=== PATIENT | male | born 1985 | race Caucasian/White ===

== ENCOUNTER 2016-07-01 17:32 | Emergency (ER) | payer BC ==
[2016-07-01 17:39] VITALS: RESP 18; TEMP 98.4
[2016-07-01] MEDS ORDERED: SODIUM CHLORIDE 0.9% 500 ML IV STA (18:14)
[2016-07-01] MEDS ORDERED: HYDROmorphone 1 MG/ML 1 ML SYRINGE IVP STA (18:14)
[2016-07-01] MEDS ORDERED: LORazepam 2 MG/ML SYRINGE IV STA (18:15)
--- NOTE | 2016-07-01 18:19 | ED ---
Abdominal Pain HPI - General Chief Complaint: Abdominal Pain Stated Complaint: stomach pain Time Seen by Provider: 07/01/16 18:07 Source: patient Mode of arrival: ambulatory Limitations: no limitations - History of Present Illness Initial Comments: This patient is a 31-year-old man who presents with severe periumbilical pain that started this afternoon probably about 3 hours ago while he was driving. The patient states that he does have history of umbilical hernia. He states that the pain currently has a aching and cramping character. He has not noted anything that relieves the pain area is worse if he touches the area of the hernia. Patient has not had fever or chills, vomiting, change in bowel movements, last which was last night and normal. No change in urination. MD Complaint: abdominal pain Onset/Timin -: hour(s) Location: periumbilical Radiation: none Severity: severe Quality: cramping, aching Consistency: constant Improves With: nothing Worsens With: nothing Associated Symptoms: denies other symptoms - Related Data Home Medications Medication Instructions Recorded Confirmed No Known Home Medications [No 07/01/16 07/01/16 Known Home Medications] Allergies Allergy/AdvReac Type Severity Reaction Status Date / Time amoxicillin [Amoxicillin] Allergy Unknown Verified 07/01/16 17:48 Review of Systems ROS Statement: Those systems with pertinent positive or pertinent negative responses have been documented in the HPI. ROS Other: All systems not noted in ROS Statement are negative. Constitutional: Denies: fever, chills Respiratory: Denies: cough, dyspnea Cardiovascular: Denies: chest pain, palpitations, syncope Gastrointestinal: Reports: abdominal pain. Denies: nausea, vomiting, diarrhea, constipation, melena, hematochezia Genitourinary: Denies: dysuria, hematuria, testicular pain Musculoskeletal: Denies: back pain Skin: Denies: rash Neurological: Denies: headache, weakness, numbness Hematological/Lymphatic: Denies: easy bleeding Past Medical History Past Medical History: No Reported History History of Any Multi-Drug Resistant Organisms: None Reported Past Surgical History: No Surgical Hx Reported Additional Past Surgical History / Comment(s): abdomal surg skin removal Past Psychological History: No Psychological Hx Reported Smoking Status: Never smoker Past Alcohol Use History: Occasional Past Drug Use History: None Reported General Exam Limitations: no limitations General appearance: alert, in no apparent distress Head exam: Present: atraumatic, normocephalic Eye exam: Present: normal appearance. Absent: scleral icterus, conjunctival injection Neck exam: Present: normal inspection Respiratory exam: Present: normal lung sounds bilaterally. Absent: respiratory distress, wheezes, rales, rhonchi, stridor Cardiovascular Exam: Present: regular rate, normal rhythm, normal heart sounds. Absent: systolic murmur, diastolic murmur, rubs, gallop GI/Abdominal exam: Present: soft, tenderness, guarding, normal bowel sounds, hernia, other (Patient has an approximately 6 cm bulge located at site of his umbilical hernia, which is tender. The hernia is incarcerated.). Absent: distended, rebound, mass, pulsatile mass Extremities exam: Present: normal inspection, normal capillary refill. Absent: pedal edema, calf tenderness Back exam: Present: normal inspection. Absent: CVA tenderness (R), CVA tenderness (L) Neurological exam: Present: alert Skin exam: Present: warm, dry, intact, normal color. Absent: rash, cyanosis, diaphoretic, erythema, petechiae, pallor, mottled Course Vital Signs 07/01/16 07/01/16 07/01/16 17:36 19:04 19:11 Temperature 98.4 F Pulse Rate 66 91 98 Respiratory 18 18 18 Rate Blood Pressure 138/71 130/67 132/63 O2 Sat by Pulse 97 100 100 Oximetry 07/01/16 07/01/16 19:16 19:21 Temperature Pulse Rate 88 85 Respiratory 18 18 Rate Blood Pressure 135/63 129/57 O2 Sat by Pulse 99 98 Oximetry Procedures - Procedural Sedation Indications: other (Umbilical hernia reduction) ASA Class: I Mallampati Airway Score: 2 Preparation: court monitor applied, pulse oximeter, supplemental O2 applied, suction/airway equipment at bedside, IV secured Midazolam: IV Midazolam Dose: 6 Complications: none Patient Tolerated Procedure: well Medical Decision Making - Medical Decision Making This patient is a 31-year-old man who presents with an incarcerated umbilical hernia. His symptoms have been going on for approximately 3 hours now. I did attempt a reduction at bedside, and the patient is guarding. I discussed the case with Dr. Nava who is the surgeon on-call, and recommends this be attempted with conscious sedation. He states that he will come to see the patient if my attempt is not successful. I discussed the risks and benefits as well as indications with the patient who did sign the consent form. Patient given the sedation and then I was able to reduce the hernia at bedside. Patient observed to ensure that symptoms have resolved. Discussed return parameters as well as the follow-up with Dr. Nava to discuss repair options. - Lab Data Result diagrams: 07/01/16 18:22 07/01/16 18:22 Lab Results 07/01/16 07/01/16 07/01/16 Range/Units 18:22 18:22 18:22 WBC 11.1 H (3.8-10.6) k/uL RBC 5.16 (4.30-5.90) m/uL Hgb 14.9 (13.0-17.5) gm/dL Hct 45.2 (39.0-53.0) % MCV 87.7 (80.0-100.0) fL MCH 29.0 (25.0-35.0) pg MCHC 33.0 (31.0-37.0) g/dL RDW 12.4 (11.5-15.5) % Plt Count 245 (150-450) k/uL Neutrophils % 85 % Lymphocytes % 9 % Monocytes % 4 % Eosinophils % 1 % Basophils % 1 % Neutrophils # 9.5 H (1.3-7.7) k/uL Lymphocytes # 1.0 (1.0-4.8) k/uL Monocytes # 0.4 (0-1.0) k/uL Eosinophils # 0.1 (0-0.7) k/uL Basophils # 0.1 (0-0.2) k/uL Sodium 141 (137-145) mmol/L Potassium 4.4 (3.5-5.1) mmol/L Chloride 104 (98-107) mmol/L Carbon Dioxide 26 (22-30) mmol/L Anion Gap 11 mmol/L BUN 18 (9-20) mg/dL Creatinine 0.74 (0.66-1.25) mg/dL Est GFR (MDRD) Af Amer >60 (>60 ml/min/1.73 sqM) Est GFR (MDRD) Non-Af >60 (>60 ml/min/1.73 sqM) Glucose 90 (74-99) mg/dL Plasma Lactic Acid Ethan 0.9 (0.7-2.0) mmol/L Calcium 9.4 (8.4-10.2) mg/dL Total Bilirubin 1.1 (0.2-1.3) mg/dL AST 46 (17-59) U/L ALT 48 (21-72) U/L Alkaline Phosphatase 59 (38-126) U/L Total Protein 7.8 (6.3-8.2) g/dL Albumin 4.5 (3.5-5.0) g/dL Amylase 41 (30-110) U/L Lipase 26 (23-300) U/L Disposition Clinical Impression: Umbilical hernia, incarcerated Disposition: HOME SELF-CARE Condition: Good Instructions: Umbilical Hernia (ED) Referrals: Erlin Olivier MD [Primary Care Provider] - 1-2 days Tye Nava MD [STAFF PHYSICIAN] - 1-2 days
[2016-07-01 18:36] LABS: Basophils # (A) 0.1 k/uL (0-0.2); Basophils % (A) 1 %; CH 30.1; CHCM 34.5; Eosinophils # (A) 0.1 k/uL (0-0.7); Eosinophils % (A) 1 %; HCT 45.2 % (39.0-53.0); HDW 2.46; HGB 14.9 gm/dL (13.0-17.5); Luc % (Auto) 1; Lymphocytes % (A) 9 %; MCV 87.7 fL (80.0-100.0); Mean Platelet Volume 7.6; Monocytes # (A) 0.4 k/uL (0-1.0); Monocytes % (A) 4 %; Neutrophils # (A) 9.5 k/uL (1.3-7.7); Neutrophils % (A) 85 %; RBC 5.16 m/uL (4.30-5.90); RDW 12.4 % (11.5-15.5); WBC 11.1 k/uL (3.8-10.6)
[2016-07-01 19:04] LABS: ALT 48 U/L (21-72); AST 46 U/L (17-59); Alkaline Phosphatase 59 U/L (38-126); Amylase 41 U/L (30-110); Anion Gap 11 mmol/L; Blood Urea Nitrogen 18 mg/dL (9-20); Calcium 9.4 mg/dL (8.4-10.2); Carbon Dioxide 26 mmol/L (22-30); Chloride 104 mmol/L (98-107); Glucose 90 mg/dL (74-99); Non-African American GFR(MDRD) >60 (>60 ml/min/1.73 sqM); Potassium 4.4 mmol/L (3.5-5.1); Sodium 141 mmol/L (137-145); Total Bilirubin 1.1 mg/dL (0.2-1.3); Total Protein 7.8 g/dL (6.3-8.2)
[2016-07-01] MEDS ORDERED: MIDAZOLAM 2 MG/2 ML VIAL IV ONE (19:05)
[2016-07-01] MEDS ORDERED: MIDAZOLAM (PF) 1 MG/ML 5 ML VIAL IV STA (19:09)
[2016-07-01 20:22] VITALS: BP 124/58; PULSE 99
== END 2016-07-01 20:17 | disposition home or self-care (01) ==
LOC: EC 17:32
DX: K42.0 Umbilical hernia with obstruction, without gangrene (principal); Z88.0 Allergy status to penicillin
CPT/HCPCS: 96361 ×2; 99152; 96375; 96374; 99284; 36415; 80053; 82150; 83605; 83690; 85025; J2250 ×2; J2060; J1170

== ENCOUNTER 2020-09-06 14:11 | Emergency (ER) | payer BC ==
[2020-09-06 14:20] VITALS: RESP 18; TEMP 98.2
[2020-09-06] MEDS ORDERED: methylPREDNISolone SOD SUCCI 125 MG/2 ML VIAL IV STA (18:30)
[2020-09-06] MEDS ORDERED: HYDROmorphone 1 MG/ML 1 ML SYRINGE IVP STA ×2 (18:30→20:35)
[2020-09-06] MEDS ORDERED: KETOROLAC 15 MG/ML 1 ML VIAL IVP STA (18:30)
--- NOTE | 2020-09-06 18:35 | ED ---
General Adult HPI - General Chief complaint: Extremity Injury, Lower Stated complaint: Lower back pain Time Seen by Provider: 09/06/20 18:00 Source: patient, RN notes reviewed, old records reviewed Mode of arrival: ambulatory Limitations: no limitations - History of Present Illness Initial comments: This is a 35-year-old male who presents emergency Department complaining of right-sided lower back pain. Patient states it radiates down his leg. Patient states his been ongoing for3 days. Patient denies any numbness or weakness. Patient denies any limited range of motion the only thing limiting his range of motion is pain. patient states standing increase the pain significantly. Patient denies any injury. Patient does have a very physical job. Patient denies any fever chills. Patient denies any dysuria hematuria urinary frequency. - Related Data Home Medications Medication Instructions Recorded Confirmed Fexofenadine HCl [Martha Allergy] 180 mg PO DAILY 09/06/20 09/06/20 Montelukast Sodium [Singulair] 10 mg PO DAILY 09/06/20 09/06/20 Previous Rx's Medication Instructions Recorded predniSONE [Deltasone] 40 mg PO DAILY #8 tab 09/06/20 Allergies Allergy/AdvReac Type Severity Reaction Status Date / Time amoxicillin [Amoxicillin] Allergy Unknown Verified 09/06/20 19:23 Review of Systems ROS Statement: Those systems with pertinent positive or pertinent negative responses have been documented in the HPI. ROS Other: All systems not noted in ROS Statement are negative. Past Medical History Past Medical History: Asthma Additional Past Medical History / Comment(s): allergies History of Any Multi-Drug Resistant Organisms: None Reported Past Surgical History: No Surgical Hx Reported, Hernia Repair Additional Past Surgical History / Comment(s): abdomal surg skin removal Past Psychological History: No Psychological Hx Reported Smoking Status: Never smoker Past Alcohol Use History: None Reported Past Drug Use History: None Reported General Exam - General Exam Comments Initial Comments: GENERAL Patient is well-developed and well-nourished. Patient is in mild distress. EYES Patient's pupils are equal and round. Extraocular motion is intact SKIN Unremarkable NEURO The patient is alert and oriented 3 PYSCH Patient has normal interpersonal interactions. MUSCULOSKELETAL Patient has full range of motion of the legs. Having the patient because quite a bit of pain in the right lower back with radiation down the leg. Patient straight leg test is negative bilaterally. Patient has normal perineum sensation. Patient denies any numbness or weakness. Patient does have some reproducible pain just below the iliac crest on the right. Limitations: no limitations Course Vital Signs 09/06/20 14:17 Temperature 98.2 F Pulse Rate 101 H Respiratory 18 Rate Blood Pressure 146/92 O2 Sat by Pulse 99 Oximetry Medical Decision Making - Medical Decision Making Lumbosacral spine showed no acute abnormality. I will back into reevaluate the patient he was doing considerably better. Disposition Clinical Impression: Sciatica Disposition: HOME SELF-CARE Condition: Good Instructions (If sedation given, give patient instructions): Sciatica (ED) Prescriptions: predniSONE [Deltasone] 40 mg PO DAILY #8 tab Referrals: Erlin Olivier MD [Primary Care Provider] - 1-2 days Time of Disposition: 20:34
--- NOTE | 2020-09-06 19:45 | XR ---
Result: History: Radiating lower back pain. Comparison: None available. Technique: 5 views of the lumbar spine. Findings: The bone mineralization is normal. Images of the lumbar spine demonstrate 5 lumbar-type vertebrae. There is no acute fracture or sublux ation. The vertebral body heights are preserved throughout the imaged lumbar spine. The vertebral e lements are in anatomic alignment. The disc heights are maintained. No definite pars defect. Impression: No significant osseous abnormality or spondylosis.
[2020-09-06] MEDS ORDERED: ACET/COD 300 MG/30 MG STARTER PACK 6 TAB BTL PO STA (20:35)
[2020-09-06 21:10] VITALS: BP 116/75; PULSE 95
== END 2020-09-06 21:10 | disposition home or self-care (01) ==
LOC: EC 14:11
DX: M54.30 Sciatica, unspecified side (principal); J45.909 Unspecified asthma, uncomplicated
CPT/HCPCS: 72110; 99283; 96374; 96375; 96376; J2930; J1170; J1885